=== PATIENT | male | born 1960 | race Caucasian/White ===

== ENCOUNTER 2020-08-11 13:20 | Day surgery (SDC) | payer OTHER, SELFPAY ==
--- NOTE | 2020-08-10 13:10 | HP.PCM_ITS ---
History and Physical Date of Admission: 08/11/20 HISTORY AND PHYSICAL ? Kedar Bal 1960 ? ? REFERRING PHYSICIAN: Juju Stevenson MD ? CHIEF COMPLAINT: Need for portacath ? 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 ? History of portal hypertension due to hepatitis C and had undergone emergency esophageal varices banding. Last PT/INR 08/06/2020 11.4/1.1 respectively. ? Subsequently found to have testicular cancer with metastatic lesions to both lungs. S/p left radical orchiectomy and needle biopsy of lung lesions ? Has considerable back pain at present, had recent MRI scan which revealed spinal canal narrowing at multiple levels with central disc bulging. There are multiple vertebral body abnormal signaling which may indicate metastatic disease. ? Denies previous clavicular or rib fractures. Denies history of blood clots, denies history of central line placement. ? ? 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 ? PAST SURGICAL HISTORY ORCHIECTOMY, RADICAL 05/29/2020 Left 05/29/2020 ? VASECTOMY ? Current Outpatient Medications ? cyclobenzaprine (FLEXERIL) 10 mg tablet Take 10 mg by mouth three times daily as needed. ? oxyCODONE-acetaminophen (PERCOCET) 5-325 mg tablet Take 1 tablet by mouth every 6 hours as needed. ? dexamethasone (DECADRON) 2 mg tablet Take 1 tablet by mouth as directed. ? promethazine (PHENERGAN) 25 mg tablet Take 1 tablet by mouth every 6 hours as needed for Nausea/Vomiting. FOR NAUSEA ? OLANZapine (ZYPREXA) 5 mg tablet Take 1 tablet by mouth at bedtime as needed (nausea sencond line). ? lidocaine-prilocaine (EMLA) 2.5-2.5 % cream Apply 1 application to affected area as needed (before treatment for Port access). ? propranolol (INDERAL) 10 mg tablet Take 10 mg by mouth three times daily. ? omeprazole (PRILOSEC) 20 mg capsule Take 20 mg by mouth twice daily. ? folic acid 1 mg tablet Take 1 mg by mouth once daily. ? thiamine (VITAMIN B-1) 100 mg tablet Take 100 mg by mouth three times daily. TAKE 2 TABS 3 TIMES A DAY ? QUEtiapine (SEROQUEL) 50 mg tablet Take 50 mg by mouth once daily. EVERY EVENING ? ? ALLERGIES: Patient has no known allergies. ? PERSONAL HISTORY: Social History ?Tobacco Use ? Smoking status: Former Smoker ? ? Types: Cigarettes ? ? Quit date: 08/06/1996 ? ? Years since quittin.0 ? Smokeless tobacco: Former User Substance Use Topics ? Alcohol use: Never ? ? Frequency: Never ? Drug use: Never ? FAMILY HISTORY ? Breast Cancer Mother ? ? Heart disease Mother ? ? Cancer Father ? ? lung ? Diabetes Father ? ? Obesity Sister ? ? Arthritis Sister ? ? No Known Problems Brother ? ? No Known Problems Sister ? ? Crohn's Disease Sister ? ? other (DDD) Sister ? ? Anxiety disorder Brother ? ? ? REVIEW OF SYSTEMS: General - denies fevers, denies anorexia, denies weight loss Cardiovascular - denies chest pain, denies history of [place] Pulmonary - denies shortness of breath, denies coughing up blood Gastrointestinal - denies abdominal pain, hepatitis C with liver cirrhosis/po rtal hypertension Neurological - denies seizures Genitourinary - s/p radical left orchiectomy, denies burning with urination, denies blood in urine Hematological - denies spontaneous/prolonged bleeding, has had previous blood transfusions Skin - denies nonhealing skin wounds Musculoskeletal - has back pain Endocrine - denies diabetes, no thyroid problems Psychological ? no major mood swings, denies hallucinations ? PHYSICAL EXAMINATION: General: The patient is 60 year old male, well nourished, well hydrated in no acute distress. The patient is oriented to time, place, and person. VITALS: Ht: 5'9.5 Wt: 214# BP 138/78 HR 79 RR 16 Temp 97.8F Head ? Normocephalic. EOM intact with sclera clear and no icterus noted. Mouth with mucus membranes moist. Neck - supple with no jugular venous distention noted. Trachea is midline. Lungs ? clear to auscultation. Normal breath sounds. No rales/rhonchi/wheezing noted. No labored breathing noted, such as retractions. No cough heard. Heart ? normal heart sounds. No rubs/clicks/murmurs noted. Regular rate. Abdomen ? soft and benign. Normal bowel sounds. Extremities ? no pitting edema noted. Skin ? normal skin integrity. Neurological ? gait normal, no focal deficits noted. Psych ? calm and appropriate ? IMPRESSION: metastatic testicular cancer to lungs ? PLAN: I have discussed the above with the patient. I have offered placement of portacath I have explained the procedure to the patient. I have counseled the patient as to the risks of the procedure, including but not limited to: infection, bleeding, injury to any blood vessels/nerves, scar tissue, injury to the lungs such as hemothorax and/or pneumothorax, thromboses of the blood vessels, line sepsis/infection, nonfunctioning of the port, wound infections, complications of anesthesia, etc. ? the patient understands. His preference is for right sided portacath placement ? The patient was offered a surgery/procedure. The provider and patient have discussed in detail the risk of exposure to and/or potential harm posed by the COVID-19 virus with having a surgery/procedure at this time versus the risk of? delaying the surgery/procedure. It is not possible to know either the risk of delaying the surgery or procedure or chance of getting an infection with perfect accuracy, but a joint decision was made between the patient and the provider ?to proceed at this time with the scheduled surgery/procedure. The patient wishes to proceed. He wishes to proceed at [facility] as he has [employer] insurance. Procedure scheduled for 08/11/2020 I have answered all questions to the patient?s satisfaction and the patient has no further questions. . Diagnoses: (C62.12) Malignant neoplasm of descended left testis (HCC) (primary encounter diagnosis) (C78.00) Malignant neoplasm metastatic to lung, unspecified laterality (HCC) (Z45.2) Exhausted vascular access ? ? Evi Dubose MD
[2020-08-11] VITALS (8 sets, daily range): BP systolic 131–209; BP diastolic 71–92; PULSE 52–90; RESP 14–18; TEMP 36.9–37.1; O2SAT 49–97; BMI 31.0
[2020-08-11] MEDS: Lactated Ringers 1,000 ML 75 ML IV (14:15)
--- NOTE | 2020-08-11 14:59 | PCM.OPRPT ---
Report of Operation Date of Procedure: 08/11/20 Pre-Operative Diagnosis: metastatic testicular cancer to lungs, need for IV access for chemotherapy Post-Operative Diagnosis: same Surgery/Procedure Performed:: placement of permanent indwelling tunneled catheter in right subclavian vein with subcutaneous port Description of Surgical Findings:: normal right subclavian anatomy to SVC Type of Anesthesia:: Local MAC Anesthesiologist: Dante Webb Specimen's removed: none Estimated Blood Loss (mL): < 10 ml Fluids Replaced: 600 ml RL Description of Procedure: After informed consent was given, the patient was brought to the Operating Room. Appropriate time out protocol was followed. The patient was then placed in the supine position. The patient was then given IV conscious sedation for anesthesia. The patient?s upper chest and neck were then prepped with a surgical skin preparation and sterile surgical drapes were placed. After proper landmarks were ascertained, the skin at the upper right chest area was then infiltrated with 1% xylocaine with epinephrine. A needle trocar was then inserted into the right subclavian vein and there was good aspiration of venous blood. A wire was then threaded into the needle trocar and this was visualized under fluoroscopy to ensure that the wire was in the right subclavian vein. Once this was done, then the needle trocar was removed. A small skin daniel was made with an 11 blade knife at the wire entrance site. The dilator with the introducer sheath attached was then placed over the wire into the right subclavian vein via the Seldinger technique and this was visualized under fluoroscopy. The dilator and sheath were in proper position as visualized by fluoroscopy in real time. The wire and dilator were then removed. The catheter was then threaded into the introducer sheath and was positioned with its tip at the junction of the superior vena cava and the right atrium as visualized under fluoroscopy in real time. I personally reviewed all of the above fluoroscopic images and noted that the positions of the wire and catheter were correct so that the next step could be conducted. The catheter was flushed with a heparin saline mixture prior to placement. A subcutaneous pocket was then created caudad to the catheter insertion site. A transverse skin incision was made after the skin and subcutaneous tissues were infiltrated with local anesthetic. Blunt dissection was then used to create a space large enough for placement of the subcutaneous port. Hemostasis was carefully controlled with electrocautery. The port was sutured to the subcutaneous fascia using vicryl suture at three sites. The catheter was then tunneled into the subcutaneous pocket. The excess catheter was transected. The catheter was then attached to the subcutaneous port using switch crew supervisor?s guidelines. The port was then placed in the subcutaneous pocket and the sutures were ligated. The subdermal incisional sites were reapproximated with interrupted vicryl suture. The skin was reapproximated with monocryl suture in a subcuticular fashion. Cavilon and steristrips were used for reinforcement of the skin closure and a sterile opsite dressing was applied. Sponge, needle, and instrument count were verified and correct at the time of skin closure. The patient was brought to the Recovery Room in stable condition Grafts/Implants Used: Power Port lot#[id number], exp 2021-11-15 - Complications none noted - Admit VTE Documentation VTE Present on Admission: Yes VTE Mechan Device Prophylaxis: SCD's
--- NOTE | 2020-08-11 15:02 | PCM.DC.POR ---
Discharge Diet: No Restrictions Discharge Activity: Return to Normal Activity, May not drive while taking narcotic pain medications. Call your doctor if your incision/area has: Continuous Slow Oozing, Foul Smelling Discharge Additional Instructions: Leave dressings in place, may get wet in shower Allergies/Adverse Reactions: Allergies No Known Allergies Allergy (Verified 08/10/20 13:26) Medications to take at Discharge Dexamethasone [Decadron] 2 mg PO DAILY 08/10/20 Folic Acid 1 mg PO DAILY 08/10/20 Omeprazole [Prilosec] 20 mg PO BID 08/10/20 Oxycodone HCl/Acetaminophen [Oxycodone-Acetaminophen 5-325] 1 ea PO Q4H PRN 08/10/20 Propranolol HCl [Inderal] 10 mg PO TID 08/10/20 Thiamine Mononitrate (Vit B1) [Vitamin B-1] 100 mg PO TID 08/10/20 Tizanidine HCl [Zanaflex] 4 mg PO Q6H PRN 08/10/20 Hydrocodone Bitart/Apap 5-325 [[place] 5MG-325MG] 1 tab PO Q4H PRN PRN 5 Days #30 tab 08/11/20 The following prescriptions were given: Hydrocodone Bitart/Apap 5-325 [[place] 5MG-325MG] 1 tab PO Q4H PRN PRN 5 Days #30 tab PRN Reason: Pain Transmission Status: Received by [id number] Primary Care Physician: González Salguero MD [Primary Care Provider] - Test Results: Test results from this visit will be discussed in further detail at your follow-up appointment, if applicable. Please Follow Up With: Evi Dubose MD - call When: follow up per oncology clinic, they can contact me if any problems
[2020-08-11] MEDS: Cefazolin 2 GM in 0.9% Normal Saline 100 ML IV (15:05)
--- NOTE | 2020-08-11 15:50 | RAD_ITS ---
STUDY: X-RAY CHEST REASON FOR EXAM: Male, 60 years old. PORT PLACEMENT TECHNIQUE: Single AP portable view of the chest. COMPARISON: None. FINDINGS: Right subclavian chest port with tip of the catheter overlying the superior vena cava and no pneumothorax. Multiple pulmonary nodules throughout the lungs worrisome for metastatic disease. Slightly elevated right hemidiaphragm. Normal size heart. Normal mediastinum and yandy. Normal visualized pulmonary arteries. Normal visualized aortic arch and descending thoracic aorta. Normal visualized thoracic spine. Normal visualized ribs, clavicles, and shoulders. There is no demonstrated abnormality of the visualized soft tissue structures of the upper abdomen. RAD/CXR for Line Placement IMPRESSION: 1. Right subclavian chest port with tip the catheter overlying spur vena cava and no pneumothorax. 2. Suspect pulmonary metastases. Electronically Signed: Shahriar Blue MD at 16:31 EDT Tel , Service support ,
== END 2020-08-11 16:58 | disposition home or self-care (01) ==
LOC: SDC 13:28 → AC 13:30
PROVIDERS: PCP Family Medicine; Referring Provider Surgery; Visit Provider Surgery
PROC: (CPT 36561; principal; 2020-08-11 14:30)
DX: Z45.2 Encounter for adjustment and management of vascular access device (principal); C62.12 Malignant neoplasm of descended left testis; C78.01 Secondary malignant neoplasm of right lung; C78.02 Secondary malignant neoplasm of left lung; K21.9 Gastro-esophageal reflux disease without esophagitis; Z86.2 Personal history of diseases of the blood and blood-forming organs and certain disorders involving the immune mechanism; Z87.19 Personal history of other diseases of the digestive system; Z86.19 Personal history of other infectious and parasitic diseases; Z79.899 Other long term (current) drug therapy; Z87.891 Personal history of nicotine dependence
CPT/HCPCS: 36561; 71045; 77001; J7120; C1788; J2405